=== PATIENT | male | born 1970 | race Two or more races ===

== ENCOUNTER → 2017-11-29 | Outpatient (CLI) | payer OTHER ==
--- NOTE | 2017-11-29 15:16 | RAD ---
EXAM: Left foot, 3 views. HISTORY: Pain. COMPARISON: None. FINDINGS: 3 views the left foot are obtained. There is no fracture, dislocation or subluxation. There is a tiny plantar spur. IMPRESSION: No acute osseous finding. Electronically signed by: Zohra Lemus MD (11/29/2017 3:13 PM) [facility]
== END | disposition home or self-care (01) ==
LOC: DXRAD 14:13
PROVIDERS: ATTEND Anesthesiology Pain Medicine
DX: M79.672 Pain in left foot (principal)
CPT/HCPCS: 73630

== ENCOUNTER → 2017-11-29 | Outpatient (CLI) | payer OTHER | END | disposition home or self-care (01) | LOC: SURG 12:51 | PROVIDERS: ATTEND Anesthesiology Pain Medicine | DX: M79.672 Pain in left foot (principal) | CPT/HCPCS: 99213 ==

== ENCOUNTER 2020-02-27 13:35 | Emergency (ER) | payer OTHER ==
[~2020-02-27] VITALS: Ht 175.3 cm; Wt 96.6 kg
--- NOTE | 2020-02-27 14:02 | PHYS DOC ---
Past History Past Medical History: IBS Adult General Chief Complaint Chief Complaint: NAUSEA/VOMITING/DIARRHEA HPI HPI Patient is a 49-year-old male who presents for suspect Covid. He recently traveled for extended time greater than 3 weeks out of the country in [place] and was recently notified that one of his companions traveling with him recently tested positive for Covid. Patient reports he started feeling symptomatic approximately 5 days ago, states he has had increased nausea, diarrhea and abdominal cramping with no other symptoms such as fever or URI-like symptoms. He does have a history of IBS and tracks his bowel movements daily and states that since symptoms arose, he has had increased frequency of stools and increased loose stools since onset Review of Systems Review of Systems Fourteen body systems of review of systems have been reviewed. See HPI for pertinent positives and negative responses, other laguna all other systems are negative, non-pertinent or non-contributory Allergies Allergies Allergies Coded Allergies Type Severity Reaction Last Updated Verified No Known Drug Allergies 02/27/20 No Physical Exam Physical Exam Constitutional: Well developed, well nourished, no acute distress, non-toxic appearance. HENT: Normocephalic, atraumatic, bilateral external ears normal, oropharynx dry, no oral exudates, nose normal. Eyes: PERRLA, EOMI, conjunctiva normal, no discharge. Neck: Normal range of motion, no tenderness, supple, no stridor. Cardiovascular: Heart rate regular, sinus rhythm, no murmurs rubs or gallops Lungs & Thorax: Bilateral breath sounds clear to auscultation Abdomen: Bowel sounds normal, soft, no tenderness, no guarding or rebound, no masses, no pulsatile masses. Nonsurgical abdomen, no peritoneal signs Skin: Warm, dry, no erythema, no rash. Back: No tenderness, no CVA tenderness. Extremities: No tenderness, no cyanosis, no clubbing, ROM intact, no edema. Neurologic: Alert and oriented X 3, grossly normal motor & sensory function, no focal deficits noted. Psychologic: Affect normal, judgement normal, mood normal. Current Patient Data Vital Signs Vital Signs Date Time Temp Pulse Resp B/P (MAP) Pulse Ox O2 Delivery O2 Flow Rate FiO2 02/27/20 15:10 99 18 118/74 (89) 98 02/27/20 13:47 98.6 Room Air Lab Results Laboratory Tests Test 11/28/20 14:19 White Blood Count 9.9 x10^3/uL (4.0-11.0) Red Blood Count 5.36 x10^6/uL (4.30-5.70) Hemoglobin 15.9 g/dL (13.0-17.5) Hematocrit 47.0 % (39.0-53.0) Mean Corpuscular Volume 88 fL (79-100) Mean Corpuscular Hemoglobin 30 pg (25-35) Mean Corpuscular Hemoglobin Concent 34 g/dL (31-37) Red Cell Distribution Width 14.0 % (11.5-14.5) Platelet Count 177 x10^3/uL (140-400) Neutrophils (%) (Auto) 74 % (31-73) Lymphocytes (%) (Auto) 13 % (24-48) Monocytes (%) (Auto) 12 % (0-9) Eosinophils (%) (Auto) 2 % (0-3) Basophils (%) (Auto) 0 % (0-3) Neutrophils # (Auto) 7.3 x10^3uL (1.8-7.7) Lymphocytes # (Auto) 1.3 x10^3/uL (1.0-4.8) Monocytes # (Auto) 1.1 x10^3/uL (0.0-1.1) Eosinophils # (Auto) 0.1 x10^3/uL (0.0-0.7) Basophils # (Auto) 0.0 x10^3/uL (0.0-0.2) Sodium Level 137 mmol/L (136-145) Potassium Level 3.0 mmol/L (3.5-5.1) Chloride Level 101 mmol/L (98-107) Carbon Dioxide Level 28 mmol/L (21-32) Anion Gap 8 (6-14) Blood Urea Nitrogen 15 mg/dL (8-26) Creatinine 1.6 mg/dL (0.7-1.3) Estimated GFR (Cockcroft-Gault) 46.6 BUN/Creatinine Ratio 9 (6-20) Glucose Level 84 mg/dL (70-99) Calcium Level 8.7 mg/dL (8.5-10.1) Total Bilirubin 0.7 mg/dL (0.2-1.0) Aspartate Amino Transf (AST/SGOT) 11 U/L (15-37) Alanine Aminotransferase (ALT/SGPT) 19 U/L (16-63) Alkaline Phosphatase 56 U/L (46-116) Troponin I Quantitative < 0.017 ng/mL (0-0.055) Total Protein 7.6 g/dL (6.4-8.2) Albumin 3.7 g/dL (3.4-5.0) Albumin/Globulin Ratio 0.9 (1.0-1.7) EKG EKG EKG ordered and interpreted by myself at 1354 hrs. as sinus rhythm at 108 bpm, unremarkable intervals, no axis deviation, no acute ischemic findings, no fascicular blocks, no STEMI Radiology/Procedures Radiology/Procedures PROCEDURE: KUB Supine abdomen. HISTORY: Abdominal pain, diarrhea Supine view was taken of the abdomen. Visualized lung bases are clear. Bowel pattern is unremarkable without obstruction. There is mild lumbar scoliosis. There are no abnormal calcifications. IMPRESSION: 1. Mild scoliosis. 2. No bowel obstruction or acute finding in the abdomen. Electronically signed by: Nixon Flowers MD (02/27/2020 2:35 PM) [facility] Heart Score HEART Score for Chest Pain: HEART Score for Chest Pain Response (Comments) Value History Slighlty/Non-Suspicious 0 Age >45 - < 65 1 Risk Factors No Risk Factors 0 Total 1 Risk Factors: Risk Factors: DM, Current or recent (<one month) smoker, HTN, HLP, family history of CAD, obesity. Risk Scores: Risk Factors: DM, Current or recent (<one month) smoker, HTN, HLP, family history of CAD, obesity. Course & Med Decision Making Course & Med Decision Making Pertinent Labs and Imaging studies reviewed. (See chart for details) Patient's hypokalemia treated today with 40 mEq of K-Dur, advised eating higher potassium diet until outpatient follow-up for recheck Also disclosed patient is high risk for COVID-19 infection especially given patient's symptomology. Patient tested for COVID-19 today, results pending. Patient responded to ER intervention which included antiemetic and IV fluid rehydration I advised patient to self quarantine at home with close monitoring of symptoms and to continue supportive care for himself until it is safe for him to be seen in outpatient setting for follow-up Strict return precautions were discussed with good understanding by patient, all questions and concerns addressed prior to ER departure and improved condition Gisele Disclaimer Gisele Disclaimer This electronic medical record was generated, in whole or in part, using a voice recognition dictation system. Departure Departure: Impression: Primary Impression: Nausea Additional Impressions: Diarrhea Person under investigation for COVID-19 Disposition: 01 DC HOME SELF CARE/HOMELESS Condition: IMPROVED Referrals: PCP,UNKNOWN (PCP) Patient Instructions: Diarrhea, Diet for Diarrhea, Adult, Nausea, Adult Additional Instructions: You have been evaluated in the Emergency Department today for nausea and diarrhea. Your evaluation was not suggestive of any emergent condition requiring medical intervention at this time. However, some problems make take more time to appear. Therefore, it is important for you to watch for any new symptoms or worsening of your current condition. Return to the Emergency Department if you experience worsening pain, persistent fevers greater than 100.4, recurrent vomiting, blood in vomit, blood in stool, dark tarry stool, chest pain, difficulty breathing, or any other concerning symptoms. You were also evaluated for symptoms that could be indicative of COVID-19 infection given your close proximity to known positive individual. Your test is pending and will be communicated to you regardless of if it is positive or negative Return to the Emergency Department if you experience worsening cough, fever, shortness of breath, recurrent vomiting, lethargy, or any other concerning symptoms. Please review the set of instructions for those who are currently under investigation for COVID-19 symptoms below: Home Care Instructions for Patients with Mild Respiratory Infection Most people with respiratory infections like colds, the flu, and Coronavirus Disease (COVID-19) will have mild illness and can get better with appropriate home care and without the need to see a provider. People who are elderly, , or have a weak immune system, or other medical problem are at higher risk of more serious illness or complications. It is recommended that they carefully monitor their symptoms closely and seek medical care early if their symptoms get worse. Treatment There is no specific treatment for most viruses including those that that cause the common cold and those that cause COVID-19. Sometimes there is treatment for the viruses that cause influenza if given early. Antibiotics treat infections caused by bacteria, but they do not work against viruses.Most people recover on their own from these viruses, including COVID-19. Here are steps that you can take to help you get better: Rest Drink plenty of fluids Take etmh-cpm-nnfvzpy cold and flu medications to reduce fever and pain. Follow the instructions on the package, unless your doctor gave you instructions. Note that these medicines do not ``cure the illness and therefore do not stop you from spreading germs. Children should not be given medication that contains aspirin (acetylsalicylic acid) because it can cause a rare but serious illness called Luc syndrome. Medicines without aspirin include acetaminophen (Tylenol) and ibuprofen (Advil , Motrin). Children younger than age 2 should not be given any utdi-ytd-ugjxfun cold medications without first speaking with a doctor.Seeking Medical Care You should seek medical care if you are not getting better within a week, or if your symptoms get worse. If you are elderly, , have a weak immune system, or other medical problems, call your doctor right away. It is best to call ahead of time to discuss your symptoms, if possible. This may allow you to receive the advice you need by phone. By avoiding a visit to a healthcare facility, you protect yourself from getting a new infection and protect others from catching an infection from you. If you do visit a healthcare facility, put on a mask to protect other patients and staff. It is recommended that you seek medical care for serious symptoms, such as: People with potentially life-threatening symptoms should call 911. If possible, put on a facemask before emergency medical services arrive. PROTECTING OTHERS Follow the steps below to help prevent the disease from spreading to people in your home and community.Stay home when you are sick Stay home - do not go to work, school, or public areas. Stay home for at least 24 hours after your symptoms have gone away without the use of fever-reducing medicines. If you must leave home while you are sick, try to avoid using public transportation, ride-shares, and taxis. Wear a mask if possible. Separate yourself from other people and animals in your home Stay in a specific room and away from other people in your home as much as possible. Use a separate bathroom, if available. Try to stay at least 6 feet from others. Do not handle pets or other animals while you are sick. Cover your coughs and sneezes Cover your mouth and nose with a tissue when you cough or sneeze. Throw used tissues in a lined trash can; immediately wash your hands. Avoid sharing personal household items Do not share dishes, drinking glasses, cups, eating utensils, towels, or bedding with other people or pets in your home. Wash them thoroughly with soap and water after use. Clean your hands often Wash your hands often with soap and water for at least 20 seconds. If soap and water are not available, clean your hands with an alcohol-based hand still worker helper that contains at least 60% alcohol, covering all surfaces of your hands and rubbing them together until they feel dry. Use soap and water if your hands are visibly dirty. Clean all ``high-touch surfaces every day High touch surfaces include counters, tabletops, doorknobs, bathroom fixtures, toilets, phones, keyboards, tablets, and bedside tables. Also, clean any surfaces that may have body fluids on them. Use a household cleaning spray or wipe, according to the product label instructions. COVID-19 (Novel Coronavirus) FAQs for Inquiring Patients What do you do if you are worried that you have been exposed to COVID-19 but are without any symptoms? If you develop symptoms that may indicate an infection, contact your physician. These include fever, cough, and shortness of breath. Testing is not available for asymptomatic individuals, regardless of travel history. To reduce the chance of getting sick use general infection prevention measures such as hand washing, covering your mouth and nose when you cough or sneeze and discarding any tissues carefully, and staying home when you are sick.Can exceptions be made for patients who are really worried and want to be tested? Presently testing is available through all local Department of Public Health and Centers for Disease Control and Prevention in addition to numerous Urgent Care facilities and Pharmacies. Only patients who meet the updated COVID-19 PUI definition may be tested. We do not control or set the PUI definition or evaluation criteria. We are unable to provide testing to patients who do not meet the strict criteria. Should patients cancel or postpone an upcoming trip? The decision about travel is personal and should be made in the context of a persons underlying health conditions, reason for travel and necessity of travel. Travel insurance generally does not cover cancellations due to concerns of infectious disease outbreaks. The Center for Disease Control has a section on travel notices. Situations are changing frequently and you should monitor the site for updates. Should situations change rapidly in a foreign country while they are traveling, you could be subject to quarantine or restrictions upon return to the [place]. It is best to have a plan on how to return urgently if needed during a trip abroad. Because of how air circulates and is filtered on airplanes, most viruses do not spread easily on airplanes. CDC does not recommend use of facemasks during air travel.What other general precautions are advised? Patients should be instructed to: Avoid close contact with people who are sick. Avoid touching your eyes, nose and mouth. Stay home from work or school when they are sick. If you have a fever, you should remain home until 24 hours after fever resolves. Clean and disinfect frequently touched objects and surfaces using a regular household cleaning spray or wipe. Sneeze/cough into their elbow, not your hand. Practice frequent hand hygiene with soap and water (at least 20 seconds) or alcohol-based hand rub. Consider avoiding crowded places or mass gatherings, especially if you are immunocompromised or have chronic lung disease. There is no evidence to support transmission of COVID-19 from goods imported from [place]. Are there any special precautions that are recommended if I am ? There is not yet any information available about the susceptibility of women to COVID-19. As a general rule, women may be more susceptible to viral respiratory infections and at risk for more severe illness. The CDC guidance for COVID-19 and has answers to questions about transmission during delivery, as well as other situations. Should food, water, or medications be stockpiled? Should people telecommute? The CDC has excellent information on this. Please visit the CDCs guidance for getting your household ready for COVID-19. What should I do if I start feeling sick at work? And what should the workplace do for anyone exposed? Anyone who is sick with a fever and cough should stay home from work until at least 24 hours after resolution of fever, regardless of concerns for COVID-19. It is still influenza (flu) season and influenza remains far more common. Problem Qualifiers JAXON BARAKAT DO Feb 27, 2020 14:02
[2020-02-27] MEDS ORDERED: ONDANSETRON PF 4 MG/2 ML VIAL. IVP ONE (14:15)
[2020-02-27] MEDS ORDERED: IV NORMAL SALINE 1,000ML 1,000 ML IV ONE (14:15)
--- NOTE | 2020-02-27 14:38 | RAD ---
Supine abdomen. HISTORY: Abdominal pain, diarrhea Supine view was taken of the abdomen. Visualized lung bases are clear. Bowel pattern is unremarkable without obstruction. There is mild lumbar scoliosis. There are no abnormal calcifications. IMPRESSION: 1. Mild scoliosis. 2. No bowel obstruction or acute finding in the abdomen. Electronically signed by: Nixon Flowers MD (02/27/2020 2:35 PM) [facility]
[2020-02-27 14:40] LABS: BASO % 0 % (0-3); EOS # 0.1 x10^3/uL (0.0-0.7); EOS % 2 % (0-3); HEMOGLOBIN 15.9 g/dL (13.0-17.5); LYMPH # 1.3 x10^3/uL (1.0-4.8); LYMPH % 13 % (24-48); MEAN CORPUSCULAR HEMOGLOBIN 30 pg (25-35); MEAN CORPUSCULAR HGB CONC 34 g/dL (31-37); MEAN CORPUSCULAR VOLUME 88 fL (79-100); MONO # 1.1 x10^3/uL (0.0-1.1); MONO % 12 % (0-9); NEUT # 7.3 x10^3uL (1.8-7.7); NEUT % 74 % (31-73); PLATELET COUNT 177 x10^3/uL (140-400); RED BLOOD COUNT 5.36 x10^6/uL (4.30-5.70); WHITE BLOOD COUNT 9.9 x10^3/uL (4.0-11.0)
[2020-02-27 14:55] LABS: ALBUMIN 3.7 g/dL (3.4-5.0); ALBUMIN/GLOBULIN RATIO 0.9 (1.0-1.7); CALCIUM 8.7 mg/dL (8.5-10.1); CREATININE 1.6 mg/dL (0.7-1.3); GFR 46.6; TOTAL BILIRUBIN 0.7 mg/dL (0.2-1.0); TOTAL PROTEIN 7.6 g/dL (6.4-8.2)
[2020-02-27] MEDS ORDERED: POTASSIUM CHLORIDE 20 MEQ TABLET.ER. PO ONE (15:00)
[2020-02-27 15:10] VITALS: BP 118/74
--- NOTE | 2020-03-02 16:07 | NUR ---
IP: patient notified of COVID result.
== END 2020-02-27 15:37 | disposition home or self-care (01) ==
LOC: ER 13:35
DX: R19.7 Diarrhea, unspecified (principal); R10.9 Unspecified abdominal pain; R11.0 Nausea; K58.9 Irritable bowel syndrome, unspecified; Z20.828 Contact with and (suspected) exposure to other viral communicable diseases
CPT/HCPCS: 36415; 74018; 80053; 84484; 85025; 96361; 96374; 99284; C9803; J2405; J7030; U0003

== ENCOUNTER 2020-03-28 16:21 | Emergency (ER) | payer OTHER ==
[~2020-03-28] VITALS: Ht 175.3 cm; Wt 96.6 kg
[2020-03-28 16:36] VITALS: BP 169/80
--- NOTE | 2020-03-28 17:28 | RAD ---
EXAM: AP View of the chest DATE: 03/28/2020 5:15 PM INDICATION: cough for 2 weeks COMPARISON: No Prior FINDINGS: The heart is not enlarged. Mediastinal and hilar contours are normal. No focal parenchymal airspace opacity. No pleural effusion or pneumothorax. IMPRESSION: 1. No radiographic evidence for acute cardiopulmonary process. Electronically signed by: Corey Mckeon MD (03/28/2020 5:26 PM) [facility]
--- NOTE | 2020-03-28 17:51 | PHYS DOC ---
Past History Past Medical History: IBS Additional Past Medical Histor: GRAVES, MIGRAINES, BAD DISC IN BACK, DECREASED GFR DUE TO MED, RESTLESS LEG (NORA RICHARDS APRN) Additional Past Surgical Histo: ORAL SURGERY SCHEDULED 03/22/20, vasectomy, capso procedure (NORA RICHARDS APRN) Alcohol Use: Occasionally (NORA RICHARDS APRN) General Adult EDM: Chief Complaint: COUGH HPI: HPI: Patient is a 49-year-old male who presents with a dry cough x2 weeks, and sore throat. [place] Patient states has been taking Mucinex and Robitussin at home. Patient denies fever, nausea vomiting, diarrhea. (NORA RICHARDS APRN) Review of Systems: Review of Systems: Constitutional: Denies fever or chills Eyes: Denies change in visual acuity HENT: Denies nasal congestion,reports sore throat Respiratory: Reports cough, denies shortness of breath Cardiovascular: Denies chest pain or edema GI: Denies abdominal pain, nausea, vomiting, bloody stools or diarrhea : Denies dysuria Musculoskeletal: Denies back pain or joint pain Integument: Denies rash Neurologic: Denies headache, focal weakness or sensory changes Endocrine: Denies polyuria or polydipsia Lymphatic: Denies swollen glands Psychiatric: Denies depression or anxiety (NORA RICHARDS APRN) Allergies: Allergies: Allergies Coded Allergies Type Severity Reaction Last Updated Verified No Known Drug Allergies 02/27/20 No (NORA RICHARDS APRN) Physical Exam: PE: Constitutional: Well developed, well nourished, no acute distress, non-toxic appearance. [] HENT: Normocephalic, atraumatic, bilateral external ears normal, oropharynx moist, no oral exudates, nose normal. [] Eyes: PERRLA, EOMI, conjunctiva normal, no discharge. [] Neck: Normal range of motion, no tenderness, supple, no stridor. [] Cardiovascular:Heart rate regular rhythm, no murmur [] Lungs & Thorax: Bilateral breath sounds clear to auscultation [] Abdomen: Bowel sounds normal, soft, no tenderness, no masses, no pulsatile masses. [] Skin: Warm, dry, no erythema, no rash. [] Back: No tenderness, no CVA tenderness. [] Extremities: No tenderness, no cyanosis, no clubbing, ROM intact, no edema. [] Neurologic: Alert and oriented X 3, normal motor function, normal sensory function, no focal deficits noted. [] Psychologic: Affect normal, judgement normal, mood normal. [] (NORA RICHARDS APRN) Current Patient Data: Vital Signs: Vital Signs Date Time Temp Pulse Resp B/P (MAP) Pulse Ox O2 Delivery O2 Flow Rate FiO2 03/28/20 16:36 98.3 97 16 169/80 (109) 97 Room Air (NORA RICHARDS APRN) EKG: EKG: [] (NORA RICHARDS APRN) Radiology/Procedures: Radiology/Procedures: []EXAM: AP View of the chest DATE: 03/28/2020 5:15 PM INDICATION: cough for 2 weeks COMPARISON: No Prior FINDINGS: The heart is not enlarged. Mediastinal and hilar contours are normal. No focal parenchymal airspace opacity. No pleural effusion or pneumothorax. IMPRESSION: 1. No radiographic evidence for acute cardiopulmonary process. Electronically signed by: Corey Mckeon MD (03/28/2020 5:26 PM) [facility] (NORA RICHARDS APRN) Heart Score: Risk Factors: Risk Factors: DM, Current or recent (<one month) smoker, HTN, HLP, family history of CAD, obesity. Risk Scores: Score 0 - 3: 2.5% MACE over next 6 weeks - Discharge Home Score 4 - 6: 20.3% MACE over next 6 weeks - Admit for Clinical Observation Score 7 - 10: 72.7% MACE over next 6 weeks - Early Invasive Strategies (NORA RICHARDS APRN) Course & Med Decision Making: Course & Med Decision Making Pertinent Labs and Imaging studies reviewed. (See chart for details) []49 year old male who presents with cough, sore throat x 2 weeks. [place] Will order chest x ray. Chest x ray shows no radiographic evidence for acute cardiopulmonary process. Will discharge home. Continue taking OTC medication and keep appointment for tomorrows covid testing. (NORA RICHARDS APRN) Dragon Disclaimer: Dragon Disclaimer: This electronic medical record was generated, in whole or in part, using a voice recognition dictation system. (NORA RICHARDS APRN) Departure Departure: Impression: Primary Impression: Cough Disposition: 01 DC HOME SELF CARE/HOMELESS Condition: STABLE Referrals: PCP,UNKNOWN (PCP) Patient Instructions: Cough, Adult, [id number] Additional Instructions: EMERGENCY DEPARTMENT GENERAL DISCHARGE INSTRUCTIONS Thank you for coming to [facility] (ED) today and trusting us with you care. We trust that you had a positivie experience in our Emergency Department. If you wish to speak to the department management, you may call the director at [phone]. YOUR FOLLOW UP INSTRUCTIONS ARE FOLLOWS: 1. Do you have a private Doctor? If you do not have a private doctor, please ask for a resource list of physicians or clinics that may be able to assist you with follow up care. 2. The Emergency Physician has interpreted your x-rays. The X-Ray specialist will also review them. If there is a change in the findings, you will be notified in 48 hours when at all possible. 3. A lab test or culture has been done, your results will be reviewed and you will be notified if you need a change in treatment. ADDITIONAL INSTRUCTIONS AND INFORMATION: 1. Your care today has been supervised by a physician who is specially trained in emergency care. Many problems require more than one evaluation for a complete diagnosis and treatment. We recommend that you schedule your follow up appointment as recommended to ensure complete treatment of you illness or injury. If you are unable to obtain follow up care and continue to have a problem, or if your condition worsens, we recommend that you return to the ED. 2. We are not able to safely determine your condition over the phone nor are we able to give sound medical advice over the phone. For these safety reasons, if you call for medical advice we will ask you to come to the ED for further evaluation. 3. If you have any questions regarding these discharge instructions please call the ED at [phone]. SAFETY INFORMATION: In the interest of safety, wellness, and injury prevention; we encourage you to wear your sealbelt, if you smoke; quite smoking, and we encourage family to use a protective helmet for bicycling and other sporting events that present an increased risk for head injury. IF YOUR SYMPTOMS WORSEN OR NEW SYMPTOMS DEVELOP, OR YOU HAVE CONCERNS ABOUT YOUR CONDITION; OR IF YOUR CONDITION WORSENS WHILE YOU ARE WAITING FOR YOUR FOLLOW UP APPOINTMENT; EITHER CONTACT YOUR PRIMARY CARE DOCTOR, THE PHYSICIAN WHOSE NAME AND NUMBER YOU WERE GIVEN, OR RETURN TO THE ED IMMEDIATELY. Attending Signature Attending Signature I have reviewed the PA/TRIAGE REGISTERED NURSE's note and plan of care. I was available for consultation as needed during the patient's visit in the emergency department. I agree with the clinical impression, plan, and disposition. (KADE VAZQUEZ DO) NORA RICHARDS APRN Mar 28, 2020 17:51 KADE VAZQUEZ DO Mar 29, 2020 05:51
== END 2020-03-28 17:56 | disposition home or self-care (01) ==
LOC: ER 16:21
DX: R05 Cough (principal); J02.9 Acute pharyngitis, unspecified; K58.9 Irritable bowel syndrome, unspecified
CPT/HCPCS: 71045; 99283